=== PATIENT | male | born 1950 | race Caucasian/White ===

== ENCOUNTER 2019-12-30 11:33 | Emergency (ER) | payer OTHER, MEDICARE ==
[~2019-12-30] VITALS: Ht 177.8 cm; Wt 88.6 kg
[2019-12-30 11:37] VITALS: BP 157/64
[2019-12-30] MEDS ORDERED: PERM60CR19 TOP (12:20)
== END 2019-12-30 12:36 | disposition home or self-care (01) ==
LOC: ER 11:34
DX: L23.9 Allergic contact dermatitis, unspecified cause (principal); Z20.89 Contact with and (suspected) exposure to other communicable diseases; E78.00 Pure hypercholesterolemia, unspecified; Z98.890 Other specified postprocedural states
CPT/HCPCS: 99283